=== PATIENT | male | born 2000 | race Caucasian/White ===

== ENCOUNTER 2020-03-18 09:41 | Emergency (ER) | payer BC ==
[~2020-03-18] VITALS: Ht 185.4 cm; Wt 127.0 kg
[~2020-03-18 09:41] MED LIST: ACETAMINOPHEN-1 EAC1 PO; IBUPROFEN 400400 M2 PO; IBUPROFEN 600600 M1 PO; IBUPROFEN 800800 M1 PO; NOHOMEMEDICATIONS
[2020-03-18 10:21] VITALS: BP 147/77
== END 2020-03-18 10:21 | disposition home or self-care (01) ==
LOC: M.ERS 09:41
DX: B34.9 Viral infection, unspecified (principal); R42 Dizziness and giddiness

== ENCOUNTER 2021-07-27 11:13 | Emergency (ER) | payer BC ==
[~2021-07-27] VITALS: Ht 170.2 cm; Wt 90.7 kg
[2021-07-27] MEDS ORDERED: IBUPROFEN 800800 M1 PO (11:37)
[2021-07-27] MEDS ORDERED: EAR WAX DROPS15 ML OTIC (11:37)
[2021-07-27 12:31] VITALS: BP 198/97
== END 2021-07-27 12:32 | disposition home or self-care (01) ==
LOC: M.ERS 11:13
DX: H61.21 Impacted cerumen, right ear (principal); H92.02 Otalgia, left ear; Z98.890 Other specified postprocedural states